=== PATIENT | female | born 1980 | race Caucasian/White ===

== ENCOUNTER 2019-11-23 22:54 | Emergency (ER) | payer OTHER ==
[2019-11-23 23:25] VITALS: BP 143/98; PULSE 114; RESP 20; TEMP 98.1
[2019-11-24] MEDS ORDERED: CLINDAMYCIN 150 MG CAP PO STA (00:52)
--- NOTE | 2019-11-24 01:04 | ED ---
General Adult HPI - General Chief complaint: Skin/Abscess/Foreign Body Stated complaint: Abscess on breast Time Seen by Provider: 11/24/19 00:10 Source: patient, RN notes reviewed Mode of arrival: ambulatory Limitations: no limitations - History of Present Illness Initial comments: 39-year-old female presents to the emergency department for a chief complaint of right breast abscess 2 days. Patient states this started 2 days ago but started hurting worse yesterday. Patient has not had any fevers at home. Patient denies history of MRSA but does have a history in her chart. Patient states that when she woke up in the mirror today was draining pus. She went to the clinic and they recommended she go straight to the ER. Patient denies any weakness, shortness of breath, chest pain, fevers. Denies any abdominal pain.Patient has no other complaints at this time including shortness of breath, chest pain, abdominal pain, nausea or vomiting, headache, or visual changes. - Related Data Previous Rx's Medication Instructions Recorded Clindamycin [Cleocin] 450 mg PO Q6H 10 Days #120 cap 11/24/19 Allergies Allergy/AdvReac Type Severity Reaction Status Date / Time Sulfa (Sulfonamide Allergy neck pain Verified 11/23/19 23:25 Antibiotics) Review of Systems ROS Statement: Those systems with pertinent positive or pertinent negative responses have been documented in the HPI. ROS Other: All systems not noted in ROS Statement are negative. Past Medical History Past Medical History: No Reported History History of Any Multi-Drug Resistant Organisms: MRSA Date of last positivie culture/infection: 2014 MDRO Source:: axilla Past Surgical History: Section, Tubal Ligation Past Psychological History: No Psychological Hx Reported Smoking Status: Current every day smoker Past Alcohol Use History: Occasional Past Drug Use History: Opiates General Exam Limitations: no limitations General appearance: alert, in no apparent distress Head exam: Present: atraumatic, normocephalic, normal inspection Eye exam: Present: normal appearance, PERRL, EOMI. Absent: scleral icterus, conjunctival injection, periorbital swelling ENT exam: Present: normal exam, mucous membranes moist Neck exam: Present: normal inspection, full ROM. Absent: tenderness, meningismus, lymphadenopathy Respiratory exam: Present: normal lung sounds bilaterally, other (Patient has a large 6 cm x 6 her meter abscess noted on the right breast at about 11:00. Patient does have cellulitis involving the entire superior aspect of the right breast and extending down somewhat past the nipple line. This is already freely draining). Absent: respiratory distress, wheezes, rales, rhonchi, stridor Cardiovascular Exam: Present: regular rate, normal rhythm, normal heart sounds. Absent: systolic murmur, diastolic murmur, rubs, gallop, clicks GI/Abdominal exam: Present: soft, normal bowel sounds. Absent: distended, tenderness, guarding, rebound, rigid Neurological exam: Present: alert Course Vital Signs 11/23/19 23:22 Temperature 98.1 F Pulse Rate 114 H Respiratory 20 Rate Blood Pressure 143/98 O2 Sat by Pulse 99 Oximetry Medical Decision Making - Medical Decision Making Vitals are stable. However patient is slightly tachycardic. Patient states that she is anxious as well. On examination patient has a large 6 and meter abscess noted of the right breast. There is surrounding cellulitic changes. This is already freely draining purulent material. Dr. crawley also evaluated patient. At this time we strongly recommend the patient stay in the hospital for IV antibiotics and debridement in the morning. Patient refuses this. Patient states that she is not from this area and wants to try oral antibiotics and then go home. However we discussed that given extensive abscess and cellulitic changes there is a risk of developing sepsis and ultimately . Patient is aware of these concerns and risks. Family member is at bedside. Patient will therefore be treated with clindamycin. Very strict return parameters were given. Patient is ALLERGIC to sulfa will be started on clindamycin. She was started here in the emergency department. Disposition Clinical Impression: Breast abscess, Cellulitis Disposition: HOME SELF-CARE Condition: Good Instructions (If sedation given, give patient instructions): Abscess (ED), Warm Compress or Soak (ED) Additional Instructions: Please do warm soaks and gently express pus with light pressure. Take antibiotic as directed. This was sent to [facility] on and . If you start to get fevers, have a high heart rate, don't feel well, or symptoms are worsening or not improving return immediately to the nearest emergency department. Otherwise follow-up with primary care in 1-2 days. You will also be given general surgery referral to follow up with. Prescriptions: Clindamycin [Cleocin] 450 mg PO Q6H 10 Days #120 cap Is patient prescribed a controlled substance at d/c from ED?: No Referrals: Derrick Archibald MD [REFERRING] - 1-2 days Anibal Thomason MD [STAFF PHYSICIAN] - 1-2 days Time of Disposition: 01:08
[2019-11-24] MEDS ORDERED: ACET/COD 300 MG/30 MG STARTER PACK 6 TAB BTL PO STA (01:05)
== END 2019-11-24 01:17 | disposition home or self-care (01) ==
LOC: EC 22:54
DX: N61.1 Abscess of the breast and nipple (principal); R00.0 Tachycardia, unspecified; F17.200 Nicotine dependence, unspecified, uncomplicated; Z88.2 Allergy status to sulfonamides; Z86.14 Personal history of Methicillin resistant Staphylococcus aureus infection; Z53.29 Procedure and treatment not carried out because of patient's decision for other reasons
CPT/HCPCS: 87070; 87205; 99283

== ENCOUNTER 2020-06-03 20:42 | Emergency (ER) | payer OTHER ==
[2020-06-03 20:47] VITALS: BP 135/86; PULSE 107; RESP 18; TEMP 98
[2020-06-03] MEDS ORDERED: CLINDAMYCIN 150 MG CAP PO STA (21:22)
--- NOTE | 2020-06-03 21:25 | ED ---
General Adult HPI - General Chief complaint: Skin/Abscess/Foreign Body Stated complaint: Face Swelling Time Seen by Provider: 06/03/20 20:48 Source: patient, RN notes reviewed Mode of arrival: ambulatory Limitations: no limitations - History of Present Illness Initial comments: 39-year-old female with a past medical history of MRSA presents to the emergency room for a chief complaint of swelling to the right side of the face. Patient states she has a bump on the right side of the face and has caused swelling. She does not have any pain in her eye or drainage from her eye. She does not have any fevers or chills. She does have a history of abscesses. Patient has not had any drainage from this area.patient does admit to history of IV drug abuse. She has not ever used this area for injection. Patient has no other complaints at this time including shortness of breath, chest pain, abdominal pain, nausea or vomiting, headache, or visual changes. - Related Data Previous Rx's Medication Instructions Recorded Clindamycin [Cleocin] 450 mg PO Q6H 10 Days #120 cap 11/24/19 Doxycycline [Vibramycin] 100 mg PO BID 10 Days #20 capsule 06/03/20 Allergies Allergy/AdvReac Type Severity Reaction Status Date / Time Sulfa (Sulfonamide Allergy neck pain Verified 11/23/19 23:25 Antibiotics) Review of Systems ROS Statement: Those systems with pertinent positive or pertinent negative responses have been documented in the HPI. ROS Other: All systems not noted in ROS Statement are negative. Past Medical History Past Medical History: No Reported History History of Any Multi-Drug Resistant Organisms: MRSA Date of last positivie culture/infection: 11/24/19 MDRO Source:: left axilla Past Surgical History: Section, Tubal Ligation Past Psychological History: No Psychological Hx Reported Smoking Status: Current every day smoker Past Alcohol Use History: Occasional Past Drug Use History: Opiates General Exam Limitations: no limitations General appearance: alert, in no apparent distress Head exam: Present: atraumatic, normocephalic, normal inspection Eye exam: Present: normal appearance, PERRL, EOMI, periorbital swelling (Minimal periorbital edema without induration or erythema.). Absent: scleral icterus, conjunctival injection ENT exam: Present: normal oropharynx, mucous membranes moist, TM's normal bilaterally, normal external ear exam, other (Minimal edema noted of the right cheek area. Not erythematous, nonindurated.) Neck exam: Present: normal inspection, full ROM. Absent: tenderness, meningismus, lymphadenopathy Respiratory exam: Present: normal lung sounds bilaterally. Absent: respiratory distress, wheezes, rales, rhonchi, stridor Cardiovascular Exam: Present: regular rate, normal rhythm, normal heart sounds. Absent: systolic murmur, diastolic murmur, rubs, gallop, clicks GI/Abdominal exam: Present: soft, normal bowel sounds. Absent: distended, tenderness, guarding, rebound, rigid Neurological exam: Present: alert Skin exam: Present: other (Patient has a 2 cm x 2 cm area of induration noted over the right lateral forehead. There is no purulent material draining at this time.) Course Vital Signs 06/03/20 20:44 Temperature 98.0 F Pulse Rate 107 H Respiratory 18 Rate Blood Pressure 135/86 O2 Sat by Pulse 100 Oximetry Medical Decision Making - Medical Decision Making HPI physical exam is documented. Vitals are stable. Patient is afebrile. There is induration noted to the right lateral forehead. There is some mild non-erythematous nonindurated edema to the right side of the face which is l ikely dependent. There is no pain of the right eye. No pain with extraocular movements. Dr. Gonzales also evaluated patient. I did attempt to incise with a needle however no purulent material was expelled. used ultrasound and there is artery just below area of induration. There is no obvious fluid collection that is drainable at this time on bedside ultrasound. Patient was started on doxycycline for MRSA coverage. She was given very strict return parameters. His symptoms are worsening to 24 hours she will return to the emergency room. If they're worsening significantly prior to that she will also return. Otherwise she will follow-up with her doctor. Patient denies chance of , history of tubal ligation. Disposition Clinical Impression: Cellulitis Disposition: HOME SELF-CARE Condition: Good Instructions (If sedation given, give patient instructions): Warm Compress or Soak (ED) Additional Instructions: Please take antibiotic as directed. Do warm compresses. If symptoms are not improving by Friday you need to return to the emergency room. Otherwise follow- up with your doctor in one to 2 days. Prescriptions: Doxycycline [Vibramycin] 100 mg PO BID 10 Days #20 capsule Is patient prescribed a controlled substance at d/c from ED?: No Referrals: Derrick Archibald MD [REFERRING] - 1-2 days Time of Disposition: 21:23
[2020-06-03] MEDS ORDERED: DOXYCYCLINE 100 MG CAP PO STA (21:26)
== END 2020-06-03 21:36 | disposition home or self-care (01) ==
LOC: EC 20:42
DX: L03.211 Cellulitis of face (principal); F17.200 Nicotine dependence, unspecified, uncomplicated; Z88.2 Allergy status to sulfonamides; Z86.14 Personal history of Methicillin resistant Staphylococcus aureus infection
CPT/HCPCS: 99283

== ENCOUNTER 2021-05-05 14:13 | Emergency (ER) | payer OTHER ==
[2021-05-05 14:26] VITALS: TEMP 98.3
--- NOTE | 2021-05-05 15:29 | ED ---
General Adult HPI - General Chief complaint: Overdose Stated complaint: overdose Source: patient, EMS, RN notes reviewed, old records reviewed Limitations: no limitations - History of Present Illness Initial comments: 40-year-old female presenting status post heroin overdose. Patient admits to IV heroin. She states this was not suicidal attempt. She states this was an accidental overdose. She'll be given both intranasal and intramuscular Narcan by paramedics. Total 4 mg. She has no complaints time my evaluation. She was apneic and required BVM for several minutes. She is breathing on her own, she is ALLERGIC able to answer questions. She has no physical complaints. She states this was an accidental overdose and is remorseful. - Related Data Previous Rx's Medication Instructions Recorded Naloxone HCl [Narcan] 4 mg NASAL ONCE #1 unit 05/05/21 Allergies Allergy/AdvReac Type Severity Reaction Status Date / Time Sulfa (Sulfonamide Allergy neck pain Verified 05/05/21 15:35 Antibiotics) Review of Systems ROS Statement: Those systems with pertinent positive or pertinent negative responses have been documented in the HPI. ROS Other: All systems not noted in ROS Statement are negative. Past Medical History Past Medical History: No Reported History History of Any Multi-Drug Resistant Organisms: MRSA Date of last positivie culture/infection: 11/24/19 MDRO Source:: left axilla Past Surgical History: Section, Tubal Ligation Past Psychological History: No Psychological Hx Reported Smoking Status: Current every day smoker Past Alcohol Use History: Occasional Past Drug Use History: Opiates General Exam Limitations: no limitations General appearance: alert, in no apparent distress Head exam: Present: atraumatic, normocephalic Eye exam: Present: normal appearance, PERRL ENT exam: Present: normal exam Neck exam: Present: normal inspection. Absent: tenderness, meningismus Respiratory exam: Present: normal lung sounds bilaterally. Absent: respiratory distress, wheezes Cardiovascular Exam: Present: regular rate, normal rhythm GI/Abdominal exam: Present: soft. Absent: distended, tenderness Extremities exam: Present: normal inspection, normal capillary refill. Absent: pedal edema Neurological exam: Present: alert, oriented X3, CN II-XII intact. Absent: motor sensory deficit Psychiatric exam: Present: depressed. Absent: homicidal ideation, suicidal ideation Skin exam: Present: warm, dry, intact. Absent: cyanosis, diaphoretic Course Vital Signs 05/05/21 05/05/21 14:18 15:25 Temperature 98.3 F Pulse Rate 105 H 95 Respiratory 18 16 Rate Blood Pressure 134/91 119/81 O2 Sat by Pulse 100 100 Oximetry Medical Decision Making - Medical Decision Making 40-year-old female with presented with heroin overdose. Patient observed in the emergency department for approximately 90 minutes with no further respiratory issues, no need for additional doses of Narcan. Patient is stable for discharge. Disposition Clinical Impression: Accidental drug overdose, Poisoning by opiates and related narcotics, other Disposition: HOME SELF-CARE Condition: Fair Instructions (If sedation given, give patient instructions): Adult Overdose (ED) Prescriptions: Naloxone HCl [Narcan] 4 mg NASAL ONCE #1 unit Is patient prescribed a controlled substance at d/c from ED?: No Referrals: None,Stated [Primary Care Provider] - 1-2 days Derrick Archibald MD [REFERRING] - 1-2 days Time of Disposition: 15:38
[2021-05-05 16:32] VITALS: BP 124/93; PULSE 98; RESP 18
== END 2021-05-05 16:32 | disposition home or self-care (01) ==
LOC: EC 14:13
DX: T40.1X1A Poisoning by heroin, accidental (unintentional), initial encounter (principal); F17.200 Nicotine dependence, unspecified, uncomplicated; Z88.2 Allergy status to sulfonamides; Z98.51 Tubal ligation status
CPT/HCPCS: 99284